=== PATIENT | male | born 1990 | race African-American/Black ===

== ENCOUNTER 2021-05-12 05:03 | Emergency (ER) | payer MEDICAID ==
[~2021-05-12] VITALS: Ht 185.4 cm; Wt 77.3 kg
[2021-05-12 07:30] VITALS: BP 128/76
[2021-05-12] MEDS ORDERED: AZITHROMYCIN 500 MG TABLET PO ONE (07:45)
[2021-05-12] MEDS ORDERED: CEFTRIAXONE SODIUM 500 MG/VIAL IM ONE (07:45)
[2021-05-12 08:18] LABS: CLARITY URINE CLOUDY (CLEAR); COLOR URINE YELLOW (YELLOW); KETONES URINE NEGATIVE (NEGATIVE); LEUKOCYTE ESTERASE URINE 3+ (NEGATIVE); NITRITE URINE NEGATIVE (NEGATIVE); OCCULT BLOOD URINE TRACE (NEGATIVE); PROTEIN URINE NEGATIVE (NEGATIVE); SPECIFIC GRAVITY URINE 1.017 (1.005-1.030)
[2021-05-12] MEDS ORDERED: NITR-87 MT (10:34)
[2021-05-14 04:07] LABS: NEISSERIA GONORRHOEAE NAA Positive (Negative)
== END 2021-05-12 07:57 | disposition home or self-care (01) ==
LOC: ER 05:03
DX: A64 Unspecified sexually transmitted disease (principal); N39.0 Urinary tract infection, site not specified; Z98.890 Other specified postprocedural states
CPT/HCPCS: 81003; 87086; 87491; 87591; 96372; 99283; J0696